=== PATIENT | female | born 1990 | race Hispanic/Latino ===

== ENCOUNTER 2022-03-18 17:05 | Observation (INO) | payer BC ==
[~2022-03-18] VITALS: Ht 165.1 cm; Wt 82.6 kg
[2022-03-18 18:08] VITALS: BP 126/80
== END 2022-03-18 18:15 | disposition home or self-care (01) ==
LOC: LDH 17:05
PROVIDERS: ADMIT Obstetrics & Gynecology; ATTEND Obstetrics & Gynecology
DX: O36.8330 Maternal care for abnormalities of the fetal heart rate or rhythm, third trimester, not applicable or unspecified (principal); Z3A.38 38 weeks gestation of pregnancy
CPT/HCPCS: 59025; G0378

== ENCOUNTER → 2024-10-02 | Outpatient (CLI) | payer SELFPAY ==
[~2024-10-02] MED LIST: FISH1CAP50 PO; FOLI10PO5 MC; LEVO25CA5 PO; [UNRECOGNIZED DRUG - CODE] PO
== END | disposition home or self-care (01) ==
LOC: LAB 10:01
PROVIDERS: ATTEND Physician Assistant Medical
DX: Z31.41 Encounter for fertility testing (principal)
CPT/HCPCS: 36415; 84702

== ENCOUNTER → 2024-10-03 | Outpatient (CLI) | payer OTHER ==
[~2024-10-03] MED LIST changes: +IOHEXOL-350 50ML VIAL IV ONE
--- NOTE | 2024-10-03 12:16 | HMCIMG ---
Exam Type: HYSTEROSALPINGOGRAPHY Clinical Information: ENCOUNTER FOR FERTILITY TESTING Comparison: None Findings: Procedure was explained to the patient and she agreed to continue and signed a written consent form stating she is not . She is placed on the supine position on the fluoroscopy table. Speculum was used to access the patient cervix. Then, the cervix was cleansed with Betadine solution x3 and dried with a dry swallow. Afterwards, 7 gauge hysterosalpingography catheter was successfully inserted into the cervix and through the endometrial cavity. Under fluoroscopic control, approximately 10 cc of contrast material were injected. Patient tolerated the procedure well and was sent home in stable condition. Fluoroscopic views were obtained. FINDINGS: There are no mass lesions within the endometrial canal. The gomez of the uterus are grossly smooth. There is contrast opacification of the fallopian tubes bilaterally with spillage of contrast into the peritoneal cavity. Impression: Bilaterally patent fallopian tubes.
== END | disposition home or self-care (01) ==
LOC: RAH 09:58
PROVIDERS: ATTEND Physician Assistant Medical
DX: Z31.41 Encounter for fertility testing (principal)
CPT/HCPCS: 74740; 58340; Q9967; C1726